=== PATIENT | male | born 1995 | race Hispanic/Latino ===

== ENCOUNTER 2019-04-07 13:58 | Emergency (ER) | payer OTHER ==
[2019-04-07] MEDS ORDERED: TETANUS/DIPHTHERIA TOXOID [ADULT] 0.5 ML VIAL IM ONE (14:32)
[2019-04-07] MEDS ORDERED: LIDOCAINE HCL 1% 20 ML VIAL ONE (14:32)
== END 2019-04-07 15:30 | disposition home or self-care (01) ==
LOC: EDH 13:58
DX: S61.212A Laceration without foreign body of right middle finger without damage to nail, initial encounter (principal); W23.0XXA Caught, crushed, jammed, or pinched between moving objects, initial encounter; Y93.89 Activity, other specified; Y92.89 Other specified places as the place of occurrence of the external cause; Y99.8 Other external cause status
CPT/HCPCS: 12041; 73140; 90471; 90714

== ENCOUNTER 2019-08-26 14:06 | Emergency (ER) | payer SELFPAY ==
[2019-08-26] MEDS ORDERED: LIDOCAINE HCL-MPF 1% 2ML VIAL ONE (14:33)
[2019-08-26] MEDS ORDERED: CEFTRIAXONE SODIUM 1 GM ONE (14:33)
[2019-08-26] MEDS ORDERED: ACETAMINOPHEN 325 MG TAB ONE (14:33)
== END 2019-08-26 15:06 | disposition home or self-care (01) ==
LOC: EDH 14:06
DX: S60.512A Abrasion of left hand, initial encounter (principal); F12.10 Cannabis abuse, uncomplicated; Z72.0 Tobacco use; W51.XXXA Accidental striking against or bumped into by another person, initial encounter; Y93.89 Activity, other specified; Y92.098 Other place in other non-institutional residence as the place of occurrence of the external cause; Y99.8 Other external cause status
CPT/HCPCS: 73130; 96372; 99284; J0696; J3490